=== PATIENT | female | born 1960 | race Caucasian/White ===

== ENCOUNTER 2025-05-10 13:45 | Emergency (ER) | payer OTHER, SELFPAY ==
[2025-05-10 13:56] VITALS: BP 160/80; PULSE 61; RESP 16; TEMP 36.3; O2SAT 99
--- NOTE | 2025-05-11 09:47 | ED.SKABFB ---
HPI - Skin/Abscess/Foreign Bdy General Chief complaint: Skin/Abscess/Foreign Body Stated complaint: Insect Bite Time Seen by Provider: 05/10/25 14:37 Source: patient and RN notes reviewed Mode of arrival: ambulatory Limitations: no limitations History of Present Illness HPI narrative: Patient presents today complaining of insect bites, possibly scabies, to the bilateral legs, arms, abdomen x4 days. She has been using Xyzal for the itching. She did have scabies at the end of April and was treated with 2 rounds of permethrin. She has treated her house extensively and believe she had full resolution of symptoms before starting itching again 4 days ago. Patient is a nurse. Related Data Allergies Allergy/AdvReac Type Severity Reaction Status Date / Time No Known Allergies Allergy Verified 05/10/25 14:40 PMFSH Comments At time of signature, I have reviewed and agree with nursing past medical, surgical, social and family history unless otherwise noted. Please see nursing chart for further information. There is no relevant family history pertinent to the presenting complaint Exam Narrative: GENERAL: Well-appearing, well-nourished, and in no acute distress. HEAD: Normocephalic, atraumatic. EYES: EOMI. No redness or drainage. Conjunctivae normal. ENT: Mucous membranes pink and moist. NECK: Normal AROM. CHEST: No respiratory distress. EXTREMITIES: Normal range of motion. No edema. SKIN: Warm, dry. Capillary refill normal. Normal skin turgor. Erythematous papular and scabbed lesions, some of which are in a linear distribution, to the bilateral anterior legs, forearms, and abdomen. NEURO: No focal deficits. Alert and oriented x3. Gait steady. PSYCH: Normal affect. No signs of depression or anxiety. Course Course Level of Care: Express Care Visit Vital Signs Vital signs: Vital Signs Temperature 97.4 F L 05/10/25 13:56 Pulse Rate 61 05/10/25 13:56 Respiratory Rate 16 05/10/25 13:56 Blood Pressure 160/80 H 05/10/25 13:56 Pulse Oximetry 99 05/10/25 13:56 Oxygen Delivery Room Air 05/10/25 13:56 Temperature 97.4 F L 05/10/25 13:56 Pulse Rate 61 05/10/25 13:56 Respiratory Rate 16 05/10/25 13:56 Blood Pressure 160/80 H 05/10/25 13:56 Pulse Oximetry 99 05/10/25 13:56 Oxygen Delivery Room Air 05/10/25 13:56 Reviewed MDM - Skin/Abscess/Foreign Bdy MDM Narrative Medical decision making narrative: Pleasant 64-year-old female patient presents with severely pruritic rash that she believes to be scabies. That she did have full resolution of symptoms with permethrin last month, new prescription will be sent to pharmacy along with prescription for ivermectin. We discussed that she can have itching for up to 2 weeks after treatment, even if mites are gone. Vital signs are stable. Patient agrees with plan. Anticipatory guidance given. Differential Diagnosis Differential diagnosis: Likely viral exanthem, dermatophytosis, urticaria, cellulitis, eczema, insect bites, impetigo, contact dermatitis and other (Scabies) Critical Care Time Critical Care Time Critical Care Time: No Discharge Plan Discharge Clinical Impression: Scabies Patient Disposition: Home Condition: Stable Instructions: Scabies (ED) Additional Instructions: Please use the permethrin and ivermectin as prescribed. Follow-up with your PCP in 2 weeks if symptoms are not improving. Your blood pressure was elevated above 120/80 today at Urgent Care. This puts you above the threshold for follow up. Please schedule a followup visit with your personal physician as soon as possible, for further evaluation and treatment. Even blood pressure exceeding 120/80 may indicate pre-hypertension. Patient Language: French Prescriptions: New permethrin 5 % cream 1 applic topical ONCE Qty: 60 1RF Rx Instructions: leave on for 8 to 14 hrs before washing off ivermectin 3 mg tablet 19,500 mcg PO WEEKLY Qty: 2 0RF Follow-up/Referrals: PHYSICIAN,[employer]EN[employer] WORKER APPRENTICE [Primary Care Provider] - Time of Disposition: 14:53
== END 2025-05-10 14:55 | disposition home or self-care (01) ==
PROVIDERS: Emergency Provider Nurse Practitioner
DX: B86 Scabies (principal)
CPT/HCPCS: 99203; G0463